=== PATIENT | male | born 1990 | race Caucasian/White ===

== ENCOUNTER 2024-07-10 13:10 | Inpatient (IN) | payer OTHER ==
[~2024-07-10] VITALS: Ht 175.3 cm; Wt 60.3 kg
[2024-07-10] MEDS ORDERED: POLYETHYLENE GLYCOL 3350 17 GM PACK PO PRN (18:45)
[2024-07-10] MEDS ORDERED: ACETAMINOPHEN 325 MG TAB PO PRN (18:45)
[2024-07-10] MEDS ORDERED: BISACODYL 10 MG SUPP PR PRN (18:45)
[2024-07-10 19:18] VITALS: PULSE 83; RESP 17; O2SAT 99
[2024-07-10 20:00] VITALS: BP 116/73; PULSE 83; RESP 18; TEMP 99.2; O2SAT 100
[2024-07-10] MEDS: Morphine 4mg INJECTION 4 MG/ML INJ IV PRN (21:18)
[2024-07-10] MEDS: SODIUM CHLORIDE 0.9% 1000ML 1,000 ML IV SCH (21:18)
[2024-07-10] MEDS: ONDANSETRON HCL INJ 2MG/ML 2ML 2 MG/ML VIAL IV PRN (21:18)
[2024-07-11] VITALS (9 sets, daily range): BP systolic 113–135; BP diastolic 71–81; PULSE 57–78; RESP 16–18; TEMP 98.1–98.3; O2SAT 97–100
[2024-07-11] MEDS: METHADONE HCL 5 MG TAB PO SCH (02:34)
[2024-07-11] MEDS: Vancomycin IV 1 GM in SODIUM CHLORIDE 0.9% 250ML 250 ML IV SCH (02:38)
[2024-07-11] MEDS: HYDROXYZINE HCL 10 MG TAB PO PRN (04:42)
[2024-07-11 06:39] LABS: BASOPHILS % 0.1 % (0.0-1.0); HEMATOCRIT 35.1 % (38.2-49.6); HEMOGLOBIN 12.2 g/dL (14.0-18.0); LYMPHOCYTES # (AUTO) 0.9 (1.0-3.2); LYMPHOCYTES % 6.5 % (18.0-39.1); MEAN CORPUSCULAR HEMOGLOBIN 29.5 pg (28-32); MEAN CORPUSCULAR HGB CONC 34.8 g/dL (31-35); MEAN CORPUSCULAR VOLUME 84.8 fL (81-99); MONOCYTES # (AUTO) 0.6 (0.2-0.8); MONOCYTES % 4.4 % (4.4-11.3); PLATELET COUNT 239 x10e3/uL (140-360); RED BLOOD COUNT 4.14 x10e6/uL (4.3-5.7); RED CELL DISTRIBUTION WIDTH 12.5 % (11.7-14.4); WHITE BLOOD COUNT 13.64 x10e3/uL (4.8-10.8)
[2024-07-11 07:09] LABS: INR 1.33; PROTHROMBIN TIME 17.2 seconds (11.9-14.5)
[2024-07-11 07:10] LABS: PARTIAL THROMBOPLASTIN TIME 35.4 seconds (23.8-35.5)
[2024-07-11 07:27] LABS: ALBUMIN 2.4 g/dL (3.5-5.0); ALBUMIN/GLOBULIN RATIO 0.6 (0.8-2.0); ANION GAP 12.7 mmol/L (8-16); BILIRUBIN,TOTAL 0.5 mg/dL (0.2-1.2); CALCIUM 8.1 mg/dL (8.4-10.2); CREATININE, SERUM 0.67 mg/dL (0.72-1.25); MAGNESIUM 1.7 MG/DL (1.3-2.1); POTASSIUM 3.7 mmol/L (3.5-5.1); TOTAL PROTEIN 6.4 g/dL (6.5-8.1)
[2024-07-11 08:22] LABS: FERRITIN 660.18 ng/mL (21.81-274.66)
[2024-07-11] MEDS: DOCUSATE SODIUM 100 MG CAP PO SCH (09:41)
[2024-07-11] MEDS: SENNOSIDES 8.6 MG TAB PO SCH (09:41)
[2024-07-11] MEDS: METHADONE HCL 10 MG TAB PO SCH (14:25)
[2024-07-11] MEDS: ENOXAPARIN SOD INJ 40 MG/0.4 ML SYR SC SCH (17:00)
[2024-07-12 08:15] VITALS: BP 136/85; PULSE 70; RESP 17; TEMP 97.8; O2SAT 100
[2024-07-12 08:28] VITALS: BP 136/85; PULSE 70; RESP 19; TEMP 97.8; O2SAT 100
[2024-07-12 09:32] LABS: ANION GAP 13.7 mmol/L (8-16); BASOPHILS % 0.5 % (0.0-1.0); CALCIUM 8.3 mg/dL (8.4-10.2); CREATININE, SERUM 0.76 mg/dL (0.72-1.25); EOSINOPHILS # (AUTO) 0.1 (0.0-0.4); EOSINOPHILS % 1.3 % (0.0-6.0); HEMATOCRIT 36.2 % (38.2-49.6); HEMOGLOBIN 12.5 g/dL (14.0-18.0); LYMPHOCYTES # (AUTO) 1.3 (1.0-3.2); LYMPHOCYTES % 19.8 % (18.0-39.1); MEAN CORPUSCULAR HEMOGLOBIN 29.8 pg (28-32); MEAN CORPUSCULAR HGB CONC 34.5 g/dL (31-35); MEAN CORPUSCULAR VOLUME 86.2 fL (81-99); MONOCYTES # (AUTO) 0.2 (0.2-0.8); MONOCYTES % 3.5 % (4.4-11.3); NEUTROPHILS # (AUTO) 4.7 (2.1-6.9); NEUTROPHILS % 74.1 % (38.7-80.0); PLATELET COUNT 256 x10e3/uL (140-360); POTASSIUM 3.7 mmol/L (3.5-5.1); RED CELL DISTRIBUTION WIDTH 12.8 % (11.7-14.4); WHITE BLOOD COUNT 6.37 x10e3/uL (4.8-10.8)
[2024-07-12] MEDS ORDERED: CHLORHEXIDINE GLUCONATE 0.12% SOLN 473 ML BTL MT SCH (10:00)
[2024-07-12] MEDS: HYDROCODONE/APAP 5MG-325MG TAB PO PRN (11:37)
[2024-07-12 12:06] VITALS: BP 108/74; PULSE 73; RESP 20; TEMP 98.2; O2SAT 100
[2024-07-12 19:10] VITALS: BP 114/89; PULSE 70; RESP 20; TEMP 98; O2SAT 100
[2024-07-12 20:00] VITALS: BP 114/89; PULSE 70; RESP 20; TEMP 98; O2SAT 100
[2024-07-13 06:13] LABS: BASOPHILS % 0.5 % (0.0-1.0); EOSINOPHILS # (AUTO) 0.5 (0.0-0.4); EOSINOPHILS % 7.9 % (0.0-6.0); HEMATOCRIT 34.5 % (38.2-49.6); HEMOGLOBIN 11.8 g/dL (14.0-18.0); LYMPHOCYTES # (AUTO) 1.8 (1.0-3.2); LYMPHOCYTES % 29.5 % (18.0-39.1); MEAN CORPUSCULAR HEMOGLOBIN 29.4 pg (28-32); MEAN CORPUSCULAR HGB CONC 34.2 g/dL (31-35); MONOCYTES # (AUTO) 0.3 (0.2-0.8); MONOCYTES % 5.1 % (4.4-11.3); NEUTROPHILS # (AUTO) 3.4 (2.1-6.9); NEUTROPHILS % 56.5 % (38.7-80.0); PLATELET COUNT 259 x10e3/uL (140-360); RED BLOOD COUNT 4.01 x10e6/uL (4.3-5.7); RED CELL DISTRIBUTION WIDTH 12.6 % (11.7-14.4); WHITE BLOOD COUNT 5.93 x10e3/uL (4.8-10.8)
[2024-07-13 07:41] LABS: ALBUMIN 2.5 g/dL (3.5-5.0); ALBUMIN/GLOBULIN RATIO 0.7 (0.8-2.0); ANION GAP 13.7 mmol/L (8-16); BILIRUBIN,TOTAL 0.4 mg/dL (0.2-1.2); CALCIUM 8.1 mg/dL (8.4-10.2); CREATININE, SERUM 0.69 mg/dL (0.72-1.25); MAGNESIUM 1.9 MG/DL (1.3-2.1); POTASSIUM 3.7 mmol/L (3.5-5.1); TOTAL PROTEIN 6.2 g/dL (6.5-8.1)
[2024-07-13 08:10] VITALS: BP 115/62; PULSE 59; RESP 19; TEMP 97.7; O2SAT 100
[2024-07-13 08:11] VITALS: BP 115/62; PULSE 59; RESP 19; TEMP 97.7; O2SAT 100
[2024-07-13] MEDS: NICOTINE 21 MG/EA PATCH TOP SCH (11:42)
[2024-07-13 12:18] VITALS: BP 113/71; PULSE 79; RESP 19; TEMP 97.9; O2SAT 100
[2024-07-13 16:29] VITALS: BP 100/63; PULSE 55; RESP 19; TEMP 97.7; O2SAT 100
[2024-07-13 20:38] VITALS: BP 108/69; PULSE 49; RESP 17; TEMP 96.3; O2SAT 100
[2024-07-13 21:22] VITALS: BP 108/69; PULSE 49; RESP 17; TEMP 96.3; O2SAT 100
[2024-07-14] VITALS: BP 110/71; PULSE 55; RESP 18; TEMP 97.9; O2SAT 100
[2024-07-14 04:00] VITALS: BP 119/75; PULSE 59; RESP 19; TEMP 96.3; O2SAT 100
[2024-07-14 07:58] LABS: BASOPHILS # (AUTO) 0.1 (0.0-0.1); BASOPHILS % 0.7 % (0.0-1.0); EOSINOPHILS # (AUTO) 0.7 (0.0-0.4); EOSINOPHILS % 10.5 % (0.0-6.0); HEMATOCRIT 31.6 % (38.2-49.6); HEMOGLOBIN 10.8 g/dL (14.0-18.0); LYMPHOCYTES # (AUTO) 1.6 (1.0-3.2); LYMPHOCYTES % 22.8 % (18.0-39.1); MEAN CORPUSCULAR HEMOGLOBIN 29.2 pg (28-32); MEAN CORPUSCULAR HGB CONC 34.2 g/dL (31-35); MEAN CORPUSCULAR VOLUME 85.4 fL (81-99); MONOCYTES # (AUTO) 0.3 (0.2-0.8); MONOCYTES % 4.2 % (4.4-11.3); NEUTROPHILS # (AUTO) 4.3 (2.1-6.9); NEUTROPHILS % 61.1 % (38.7-80.0); PLATELET COUNT 269 x10e3/uL (140-360); RED CELL DISTRIBUTION WIDTH 12.5 % (11.7-14.4); WHITE BLOOD COUNT 6.97 x10e3/uL (4.8-10.8)
[2024-07-14 08:28] VITALS: BP 111/73; PULSE 59; RESP 18; TEMP 98.1; O2SAT 100
[2024-07-14 08:31] LABS: CALCIUM 8.2 mg/dL (8.4-10.2); CREATININE, SERUM 0.77 mg/dL (0.72-1.25)
[2024-07-14] MEDS ORDERED: CHLORHEXIDINE GLUCONATE 0.12% SOLN 473 ML BTL MT SCH (10:00)
[2024-07-14 10:35] VITALS: BP 111/73; PULSE 59; RESP 18; TEMP 98.1; O2SAT 100
[2024-07-14 12:43] VITALS: BP 101/69; PULSE 102; RESP 18; TEMP 98.4; O2SAT 100
[2024-07-14] MEDS ORDERED: CIPROFLOXACIN750 MG PO (15:39)
[2024-07-14] MEDS ORDERED: DOXYCYCLINE HY100 MG PO (15:39)
[2024-07-14 16:07] VITALS: BP 107/74; PULSE 66; RESP 18; TEMP 98.3; O2SAT 100
[2024-07-15] MEDS ORDERED: CHLORHEXIDINE GLUCONATE 0.12% SOLN 473 ML BTL MT SCH (11:00)
== END 2024-07-14 18:01 | disposition home or self-care (01) | DRG 603 ==
LOC: MED/SURG3 18:27
PROVIDERS: ADMIT Internal Medicine; ATTEND Internal Medicine
DX: L03.211 Cellulitis of face (principal); E86.0 Dehydration; E87.1 Hypo-osmolality and hyponatremia; Z59.00 Homelessness unspecified; F11.23 Opioid dependence with withdrawal; L03.213 Periorbital cellulitis; D63.8 Anemia in other chronic diseases classified elsewhere; H10.9 Unspecified conjunctivitis; F15.10 Other stimulant abuse, uncomplicated; K05.6 Periodontal disease, unspecified; F17.210 Nicotine dependence, cigarettes, uncomplicated
CPT/HCPCS: 36415; 80048; 80053; 80202; 82607; 82728; 82746; 83540; 83735; 83930; 84466; 85025; 85610; 85730; 87040; 93005; 94799; J1650; J2270; J2405; J2543; J3410; J7030; J7050